=== PATIENT | female | born 1950 | race Caucasian/White ===

== ENCOUNTER 2024-12-13 10:21 | Emergency (ER) | payer MEDICARE, OTHER, SELFPAY ==
[2024-12-13 10:40] VITALS: BP 162/78
--- NOTE | 2024-12-13 10:43 | ED.GENMED ---
ED Provider Triage
<Risa Nieto SEWER BRICKLAYER - Last Filed: 12/13/24 10:47>
-
Patient seen by provider in Triage?: Seen in Triage
Attestation: A medical screening examination has been initiated by a qualified medical provider. Based on the assessment performed at this time, it has been determined that an emergent medical condition may exist and the patient has been informed
that further medical evaluation and possible additional diagnostic testing may be needed.
HPI: 74 yo female here for fall in store, tripped going in the door. Mild pain left knee, declines when xray discussed, Has been able to ambulate with little pain. 'Just a little tender to touch.'
Bruising and swelling left outer orbit, Denies change in vision, Not anticoagulated.
GENERAL: Alert , in no apparent distress
EYE: No visual abnormalities. EOMs intact. Swelling and ecchymosis lateral left upper orbit.
NECK: Trachea midline
ENT: No visible abnormalities.
LUNGS: No acute respiratory distress
NEUROLOGICAL: Alert and oriented
SKIN: Skin intact. No visible changes.
MUSCULOSKELETAL: Moving extremities normally
PSYCH: Normal and appropriate interaction.
This is a medical evaluation conducted in person to initiate diagnostic evaluation and provide initial therapeutics. Please see further documentation by the treating clinician.
History of Present Illness
<Risa Nieto SEWER BRICKLAYER - Last Filed: 12/13/24 10:47>
General
Chief Complaint: Fall
Time Seen by Provider: 12/13/24 11:17
<Jesu Mckeon Jr., PA-C - Last Filed: 12/13/24 13:03>
General
Source: patient
Exam Limitations: none
Nursing documentation reviewed up to this point in time: agreed with
History of Present Illness
History of Present Illness:
74-year-old female presenting to the emergency department after trip and fall on the way into the store today. Mainly trauma to the left eyebrow. Also hit her left knee but able to ambulate well denies any numbness weakness neck pain.
Review of Systems
<Jesu Mckeon Jr., PA-C - Last Filed: 12/13/24 13:03>
Review of Systems
Allergies reviewed?: Yes
All Other Systems: ROS reviewed and negative except as documented in HPI and ROS
Phy Exam
<Jesu Mckeon Jr., PA-C - Last Filed: 12/13/24 13:03>
Physical Exam
Physical Exam:
GENERAL: Alert , in no apparent distress
EYE: Normal pupil reaction pupils equal and reactive
NECK: Supple, no significant adenopathy.
ENT: Ecchymosis surrounding the left orbit however no significant injury to the eye itself. Normal extraocular movements o/p clr, mmm.
CARDIAC: Regular rate and rhythm .
LUNGS: Clear breath sounds bilaterally, no acute respiratory distress, no wheezes/rales/rhonchi
ABDOMEN: Soft, without focal tenderness, no r/g, no cvat
NEUROLOGICAL: Alert and oriented, no focal neuro deficits
SKIN: Warm and dry, skin intact.
MUSCULOSKELETAL: No edema, well perfused.
PSYCH: Normal and appropriate interaction.
Course
<Risa Nieto SEWER BRICKLAYER - Last Filed: 12/13/24 10:47>
Orders/Labs/Results
Orders:
Orders
12/13/24 11:43
CT Head W/o Iv Contrast Urgent
Comment:
Reason For Exam: fall hit face
CT Orbits W/o Iv Contrast Urgent
Comment:
Reason For Exam: fall hit orbital region
Vital Signs
Initial and Last Documented VS:
Initial Vital Signs
Temp Pulse Resp BP Pulse Ox
97.9 F 92 18 162/78 97
12/13/24 10:40 12/13/24 10:40 12/13/24 10:40 12/13/24 10:40 12/13/24 10:40
Last Documented Vital Signs
Temp Pulse Resp BP Pulse Ox
97.9 F 92 18 162/78 97
12/13/24 10:40 12/13/24 10:40 12/13/24 10:40 12/13/24 10:40 12/13/24 10:40
<Jesu Mckeon Jr., PA-C - Last Filed: 12/13/24 13:03>
Orders/Labs/Results
Orders:
Orders
12/13/24 11:43
CT Head W/o Iv Contrast Urgent
Comment:
Reason For Exam: fall hit face
CT Orbits W/o Iv Contrast Urgent
Comment:
Reason For Exam: fall hit orbital region
Vital Signs
Initial and Last Documented VS:
Initial Vital Signs
Temp Pulse Resp BP Pulse Ox
97.9 F 92 18 162/78 97
12/13/24 10:40 12/13/24 10:40 12/13/24 10:40 12/13/24 10:40 12/13/24 10:40
Last Documented Vital Signs
Temp Pulse Resp BP Pulse Ox
97.9 F 92 18 162/78 97
12/13/24 10:40 12/13/24 10:40 12/13/24 10:40 12/13/24 10:40 12/13/24 10:40
<Jesu Mckeon Jr., PA-C - Last Filed: 12/13/24 13:03>
MDM/Problems Addressed
MDM/Problems Addressed:
74-year-old female presenting after mechanical fall hitting mainly the left eyebrow region. Some bruising surrounding left eye but no involvement of the eye itself. Blood pressure elevated on arrival here otherwise vital signs are normal. Head CT
and orbit CT without evidence of acute abnormality. Patient with likely soft tissue injury stable for outpatient management return precautions given.
<Jesu Mckeon Jr., PA-C - Last Filed: 12/13/24 13:03>
*Critical Care Note
Total Time (30-74mins, 75-104mins- exclusive of procedures): Not Applicable
ED Attending Note
<Risa Nieto NP - Last Filed: 12/13/24 10:47>
-
Portions of this chart may have been created with voice recognition software.� Occasional wrong word or��sound alike� substitutions may have occurred due to the inherent limitations of voice recognition software.
Discharge Plan
Departure
Patient Disposition: Home (Routine Discharge)
Date of Disposition: 12/13/24
Time of Disposition: 13:03
Patient with high blood pressure during this ER visit?: No
Condition: Good
Covid-19: Not Applicable
Discharge Problem:
Fall, Bruise of face
Instructions: Preventing falls in adults
Referrals:
Ismael Hampton MD [Family Provider] -
Activity Restrictions/Additional Instructions:
You came to the emergency department today with concerns of a fall. Here you had a reassuring CT scan. Please follow closely with the primary care doctor. Return to the emergency department any worsening, new or concerning symptoms.
Interventions
Interventions:
*Risk Screen - Suicide Last Done: 12/13/24 10:42
*General Assessment Last Done: 12/13/24 10:40
*Neglect/Abuse Screening Last Done: 12/13/24 10:40
*ED COVID-19 Vaccine History Last Done: 12/13/24 11:36
ED-Musculoskeletal Assessment Last Done: 12/13/24 11:36
ED- Neurological Assessment Last Done: 12/13/24 11:36
ED-Skin Assessment Last Done: 12/13/24 11:36
Discharge Date and Time
Print Language: KHMER
[2024-12-13 13:06] VITALS: BP 156/96
== END 2024-12-13 13:16 | disposition home or self-care (01) ==
LOC: EMR 10:21
PROVIDERS: EMERGENCY PHYSICIAN Student in an Organized Health Care Education/Training Program; FAMILY PHYSICIAN Internal Medicine
DX: S00.83XA Contusion of other part of head, initial encounter (principal); W01.0XXA Fall on same level from slipping, tripping and stumbling without subsequent striking against object, initial encounter; Y92.512 Supermarket, store or market as the place of occurrence of the external cause
CPT/HCPCS: 99284; 70450; 70480